=== PATIENT | female | born 1940 | race Caucasian/White ===

== ENCOUNTER 2024-11-18 13:14 | Emergency (ER) | payer OTHER, SELFPAY ==
[2024-11-18 13:23] VITALS: BP 183/96
[2024-11-18 13:51] LABS: Hematocrit 24.0 % (37.0-47.0); Hemoglobin 7.4 g/dL (12.0-16.0); Mean Corp Hgb Conc. 30.8 g/dL (33.0-37.0); Mean Corpuscular Volume 84.5 fL (81.0-99.0); Nucleated Red Blood Cells % 0 %; Platelet Count 268 10^3/uL (130-400); Red Cell Dist. Width 16.4 % (11.5-14.5)
[2024-11-18] MEDS: OMNIPAQUE 50 ML PO (14:06)
[2024-11-18 14:20] LABS: ALT (SGPT) 23 U/L (0-35); AST (SGOT) 34 U/L (14-36); Albumin 3.5 g/dl (3.5-5.0); Alkaline Phosphatase 63 U/L (38-126); Blood Urea Nitrogen 13 mg/dl (7-17); Calcium 8.9 mg/dl (8.4-10.2); Carbon Dioxide 28 mmol/L (22-30); Chloride 94 mmol/L (98-107); Glucose 99 mg/dl (70-99); Lipase 180 U/L (23-300); Magnesium 1.5 mg/dl (1.6-2.3); Potassium 3.4 mmol/L (3.5-5.1); Sodium 128 mmol/L (135-145); Total Protein 6.0 g/dl (6.3-8.2); eGFR > 60.00
--- NOTE | 2024-11-18 14:29 | ED.GENMED ---
History of Present Illness
<Adele Moreno PA-C - Last Filed: 11/18/24 18:36>
General
Chief Complaint: Abdominal Symptoms
Source: patient and ambulance crew
Time Seen by Provider: 11/18/24 13:32
History of Present Illness
History of Present Illness:
83yoF with a history of atrial fibrillation, hypertension, GERD presenting via EMS for evaluation of vomiting. Patient lives alone and had her initial home health appointment today. She was seen by a nurse practitioner and upon the BASKET FILLER's arrival,
the stove was noted to be on and the home smelled of smoke. Patient was also noted to be short of breath while walking up the stairs and her heart rate was irregular on assessment. There was also concern for dehydration because she was having
vomiting and diarrhea today. Patient reports having 2 episodes of vomiting today as well as 2 episodes of diarrhea. There was concern for cognitive decline so she was sent to the ED for evaluation.
Additional history obtained from Tatyana, patient's POA and friend. Tatyana reports that patient had a stroke about 3 to 4 months ago and her cognition has declined since then. Patient was complaining of diarrhea for the past few days and that her
stomach has not been feeling well. She has not been eating much. When asked if patient is safe at home, Tatyana states that that is 'questionable.'
After several attempts, patient's PCP office did call back to relay additional information. The nurse at her PCP office states that there is no documented history of atrial fibrillation. Her last blood work was done on 07/03/2024 and hemoglobin was
11.4 at that time and sodium was normal. Her problem list includes peripheral artery disease, COPD, hyperlipidemia, hypertension, carotid artery disease, iron deficiency anemia, and COPD.
Phy Exam
<Adele Moreno PA-C - Last Filed: 11/18/24 18:36>
General Physical Exam
General Presentation: no apparent distress
General Skin: warm and dry
General Habitus: elderly and frail
General Mental: alert
ENT Exam
ENT Exam: normocephalic
Cardiovascular Exam
Cardiovascular Exam: irregularly irregular and systolic murmur
Pulmonary Exam
Pulmonary Exam: no respiratory distress, no stridor, no wheezing and decreased breath sounds
Gastrointestinal Exam
Gastrointestinal Exam: non tender, soft, non distended and other
Neurological Exam
Neurological Exam: alert
Skin Exam
Skin Exam: normal color and warm/dry
Psychiatric Exam
Psychiatric Exam: agitated
Course
<Adele Moreno PA-C - Last Filed: 11/18/24 18:36>
Orders/Labs/Results
Orders:
Orders
11/18/24 13:31
Complete Blood Count/With Diff Urgent
Comprehensive Metabolic Panel Urgent
Lipase Urgent
Comment: ADD ON
Magnesium Urgent
Comment: ADD ON
NT-proBNP Urgent
Comment: ADD ON
11/18/24 13:44
Add On- LAB Urgent
Tests Added?: lipase, magnesium
11/18/24 13:45
Electrocardiogram (*1) Urgent
Reason for Study: Abdominal Pain
EKG- Treatment ONCE
11/18/24 13:46
Iohexol [Omnipaque] See Protocol PO NOW STA
11/18/24 13:50
Case Management Consult ONCE
Case Management Consult: Discharge Planning
CR Chest - 2 Views Urgent
Comment:
Reason For Exam: SOB
11/18/24 13:52
CT Head W/o Iv Contrast Urgent
Comment:
Reason For Exam: AMS
11/18/24 14:10
CT Abd/pel Without Iv Or Oral Urgent
Comment:
Reason For Exam: upper abd pain
11/18/24 14:23
Magnesium Sulfate 2 Gram/50 ml [Magnesium Sulfate] 2 gram in 50 ml IV NOW
Potassium Chloride [KCl] 20 meq PO NOW STA
11/18/24 14:27
0.9% Sodium Chloride 500 ml [Nss] 500 ml IV BOLUS
11/18/24 15:13
Troponin I Urgent
Urinalysis Reflex To Culture Urgent
Date Specimen was Collected: 11/18/24
Time Specimen was Collected: 15:12
11/18/24 16:11
Add On- LAB Urgent
Tests Added?: BNP
Abnormal Lab Results
11/18/24
13:31
RBC 2.84 L 10^6/uL
(4.20-5.40)
Hgb 7.4 L g/dL
(12.0-16.0)
Hct 24.0 L %
(37.0-47.0)
MCH 26.1 L pg
(27.0-31.0)
MCHC 30.8 L g/dL
(33.0-37.0)
RDW 16.4 H %
(11.5-14.5)
MPV 10.9 H fL
(7.4-10.4)
Absolute Neuts (auto) 7.7 H 10^3/uL
(1.4-6.5)
Absolute Monos (auto) 1.0 H 10^3/uL
(0.1-0.6)
Neutrophils % 75.4 H %
(42.2-75.2)
Lymphocytes % 12.5 L %
(20.5-51.1)
Monocytes % 10.1 H %
(1.7-9.3)
Sodium 128 L mmol/L
(135-145)
Potassium 3.4 L mmol/L
(3.5-5.1)
Chloride 94 L mmol/L
(98-107)
Magnesium 1.5 L mg/dl
(1.6-2.3)
Total Protein 6.0 L g/dl
(6.3-8.2)
11/18/24 13:31
11/18/24 13:31
Vital Signs
Initial and Last Documented VS:
Initial Vital Signs
Temp Pulse Resp BP Pulse Ox
98.3 F 74 18 183/96 96
11/18/24 13:23 11/18/24 13:23 11/18/24 13:23 11/18/24 13:23 11/18/24 13:23
Last Documented Vital Signs
Temp Pulse Resp BP Pulse Ox
98.3 F 74 18 157/71 96
11/18/24 13:23 11/18/24 13:23 11/18/24 13:23 11/18/24 17:05 11/18/24 16:28
<Ryan Starr, DO - Last Filed: 11/18/24 17:57>
Orders/Labs/Results
Orders:
Orders
11/18/24 13:31
Complete Blood Count/With Diff Urgent
Comprehensive Metabolic Panel Urgent
Lipase Urgent
Comment: ADD ON
Magnesium Urgent
Comment: ADD ON
NT-proBNP Urgent
Comment: ADD ON
11/18/24 13:44
Add On- LAB Urgent
Tests Added?: lipase, magnesium
11/18/24 13:45
Electrocardiogram (*1) Urgent
Reason for Study: Abdominal Pain
EKG- Treatment ONCE
11/18/24 13:46
Iohexol [Omnipaque] See Protocol PO NOW STA
11/18/24 13:50
Case Management Consult ONCE
Case Management Consult: Discharge Planning
CR Chest - 2 Views Urgent
Comment:
Reason For Exam: SOB
11/18/24 13:52
CT Head W/o Iv Contrast Urgent
Comment:
Reason For Exam: AMS
11/18/24 14:10
CT Abd/pel Without Iv Or Oral Urgent
Comment:
Reason For Exam: upper abd pain
11/18/24 14:23
Magnesium Sulfate 2 Gram/50 ml [Magnesium Sulfate] 2 gram in 50 ml IV NOW
Potassium Chloride [KCl] 20 meq PO NOW STA
11/18/24 14:27
0.9% Sodium Chloride 500 ml [Nss] 500 ml IV BOLUS
11/18/24 15:13
Troponin I Urgent
Urinalysis Reflex To Culture Urgent
Date Specimen was Collected: 11/18/24
Time Specimen was Collected: 15:12
11/18/24 16:11
Add On- LAB Urgent
Tests Added?: BNP
Abnormal Lab Results
11/18/24
13:31
RBC 2.84 L 10^6/uL
(4.20-5.40)
Hgb 7.4 L g/dL
(12.0-16.0)
Hct 24.0 L %
(37.0-47.0)
MCH 26.1 L pg
(27.0-31.0)
MCHC 30.8 L g/dL
(33.0-37.0)
RDW 16.4 H %
(11.5-14.5)
MPV 10.9 H fL
(7.4-10.4)
Absolute Neuts (auto) 7.7 H 10^3/uL
(1.4-6.5)
Absolute Monos (auto) 1.0 H 10^3/uL
(0.1-0.6)
Neutrophils % 75.4 H %
(42.2-75.2)
Lymphocytes % 12.5 L %
(20.5-51.1)
Monocytes % 10.1 H %
(1.7-9.3)
Sodium 128 L mmol/L
(135-145)
Potassium 3.4 L mmol/L
(3.5-5.1)
Chloride 94 L mmol/L
(98-107)
Magnesium 1.5 L mg/dl
(1.6-2.3)
Total Protein 6.0 L g/dl
(6.3-8.2)
11/18/24 13:31
11/18/24 13:31
Vital Signs
Initial and Last Documented VS:
Initial Vital Signs
Temp Pulse Resp BP Pulse Ox
98.3 F 74 18 183/96 96
11/18/24 13:23 11/18/24 13:23 11/18/24 13:23 11/18/24 13:23 11/18/24 13:23
Last Documented Vital Signs
Temp Pulse Resp BP Pulse Ox
98.3 F 74 18 157/71 96
11/18/24 13:23 11/18/24 13:23 11/18/24 13:23 11/18/24 17:05 11/18/24 16:28
<Adele Moreno PA-C - Last Filed: 11/18/24 18:36>
MDM/Problems Addressed
Differential Diagnosis Includes:
83yoF sent in by BASKET FILLER after an initial home visit. Concern for SOB as well as cognitive decline. Stove was on when BASKET FILLER arrived at the home today. Patient agitated and evasive with questioning. She is hypertensive with otherwise stable vitals. HR
irregularly iregular and systolic murmur noted. Differential diagnosis includes but is not limited to: arrhythmia, ACS, CHF, gastroenteritis, dehydration, failure to thrive
Initial ED plan: Check cardiac labs, UA, EKG, CXR, CT head, and CT abdomen. CT abdomen was initially ordered with PO contrast but patient is adamantly refusing this.
<Adele Moreno PA-C - Last Filed: 11/18/24 18:36>
*Pulse Oximetry
SaO2: 96
Oxygen Mode of Delivery: Room air
Patient hypoxic: no (96%)
*Critical Care Note
Total Time (30-74mins, 75-104mins- exclusive of procedures): Not Applicable
<Adele Moreno PA-C - Last Filed: 11/18/24 18:36>
Update Note
Update Note:
Lab work reveals severe anemia with a hemoglobin of 7.4. I was able to get in contact with patient's PCP and last hemoglobin was 11.4 in July of this year. Patient denies any melena or hematochezia. Patient is adamantly refusing rectal exam a this
time. Sodium also low at 129. Hypokalemia and hypomagnesemia noted which were both replaced. CXR shows mild pulmonary edema. CT abdomen shows air-fluid levels and normal caliber small bowel loops which may be related to ileus or enteritis as
well as anasarca. Case management consult obtained and patient is refusing placement at this time and outpatient resources provided. Patient has numerous reasons for hospitalization at this time including new severe anemia, new onset afib, and
suspected CHF. Patient is adamantly refusing hospitalization at this time. She is A&Ox3 and patient's POA, Tatyana, agrees to sign patient out AGAINST MEDICAL ADVICE.
ED Attending Note
<Adele Moreno PA-C - Last Filed: 11/18/24 18:36>
-
Portions of this chart may have been created with voice recognition software.� Occasional wrong word or��sound alike� substitutions may have occurred due to the inherent limitations of voice recognition software.
<Ryan Starr DO - Last Filed: 11/18/24 17:57>
ED Attending Note
Patient seen and examined by attending physician: Yes
ED Attending Note:
I have reviewed and agree with history and treatment plan by Adele Moreno PA-C. My exam revealed 83-year-old female alert and oriented to person place and season. Her power of disability attorney Tatyana Medrano is present. Patient is in no distress but
will not allow any further exam. She elects to leave AGAINST MEDICAL ADVICE which is consented by her power of disability attorney. Power of disability attorney and patient understand risks of this action.
Discharge Plan
Departure
Patient Disposition: Against Medical Advice
Date of Disposition: 11/18/24
Time of Disposition: 17:46
Patient with high blood pressure during this ER visit?: Yes
Condition: Fair
Discharge Problem:
Anemia, Hyponatremia, Atrial fibrillation
Instructions: Atrial fibrillation, Hyponatremia, Anemia in adults, possibly from low iron - ED (DC), BLOOD PRESSURE
Referrals:
ERICK WEBSTER MD [Family Provider, Internal Medicine] - Call in 1-3 days for appt
Corrina Barahona MD [Active, Cardiology] - Call in 1-3 days for appt
Interventions
Interventions:
*Risk Screen - Suicide Last Done: 11/18/24 13:25
*General Assessment Last Done: 11/18/24 16:02
*Neglect/Abuse Screening Last Done: 11/18/24 13:25
*ED- Fall Risk Assessment Last Done: 11/18/24 16:02
*Nursing Disposition Last Done: 11/18/24 18:05
KI-Odruaw-Lxmgyhoblx Assessment Last Done: 11/18/24 13:27
Discharge Date and Time
Discharge Date/Time: 11/18/24 18:05
Print Language: TAJIK
[2024-11-18] MEDS: NSS 500 IV (15:00)
[2024-11-18] MEDS: MAGNESIUM SULFATE 50 IV (15:01)
[2024-11-18 15:06] VITALS: BP 189/144
[2024-11-18] MEDS: KCL 20 MEQ PO (15:08)
[2024-11-18 15:39] LABS: Urine Character Clear (Clear)
[2024-11-18 15:57] LABS: Troponin I 0.028 ng/ml
[2024-11-18 16:01] VITALS: BMI 18.6
--- NOTE | 2024-11-18 16:35 | CM ---
Received CM consult, I met with pt and her friend Tatyana francy in ED. Pt lives alone, second floor condo, [address]
Tatyana assists pt with transport to appointments and food shopping. Pt states she is still driving.
Independent in ADLs, personal care and ambulation at baseline. Uses cane when outside the home. No recent falls. Pt confirms prescription coverage.
Pt had an initial visit from WILDLIFE SCIENCE PROFESSOR today who was concerned for pt safety, stove was on. Pt denies safety issues and is adamant that she wants to stay in her home. Discussed possibly hiring caregivers, she told me she doesn't like people coming in to
her home. List of women's studies professor/caregiver agencies given to pt.
Referral made to [facility].
PCP: Cristy Bailey
Pharmacy: [facility] Zackery Falcon
[2024-11-18 17:03] VITALS: BP 159/71
[2024-11-18 17:05] VITALS: BP 157/71
== END 2024-11-18 18:05 | disposition left against medical advice (07) ==
LOC: EMR 13:14
PROVIDERS: Physician Assistant; Student in an Organized Health Care Education/Training Program; EMERGENCY PHYSICIAN Emergency Medicine; FAMILY PHYSICIAN Student in an Organized Health Care Education/Training Program
DX: D50.9 Iron deficiency anemia, unspecified (principal); E87.1 Hypo-osmolality and hyponatremia; I48.91 Unspecified atrial fibrillation; E87.6 Hypokalemia; E83.42 Hypomagnesemia; I10 Essential (primary) hypertension; E78.5 Hyperlipidemia, unspecified; Z86.73 Personal history of transient ischemic attack (TIA), and cerebral infarction without residual deficits; J44.9 Chronic obstructive pulmonary disease, unspecified; I73.9 Peripheral vascular disease, unspecified; Z60.2 Problems related to living alone
CPT/HCPCS: 99285; 96365; 70450; 71046; 74176; 80053; 81003; 83690; 83735; 83880; 84484; 85025; 93005

== ENCOUNTER 2024-12-29 21:44 | Inpatient (IN) | payer OTHER, SELFPAY ==
[2024-12-29] VITALS (11 sets, daily range): BP systolic 145–196; BP diastolic 49–92
[2024-12-29 18:30] LABS: Hematocrit 29.8 % (37.0-47.0); Hemoglobin 9.1 g/dL (12.0-16.0); Mean Corp Hgb Conc. 30.5 g/dL (33.0-37.0); Mean Corpuscular Volume 79.0 fL (81.0-99.0); Nucleated Red Blood Cells % 0 %; Platelet Count 165 10^3/uL (130-400); Red Cell Dist. Width 17.4 % (11.5-14.5)
[2024-12-29 18:35] LABS: AST (SGOT) 57 U/L (14-36); Albumin 4.0 g/dl (3.5-5.0); Alkaline Phosphatase 156 U/L (38-126); Blood Urea Nitrogen 22 mg/dl (7-17); Calcium 9.0 mg/dl (8.4-10.2); Carbon Dioxide 16 mmol/L (22-30); Chloride 99 mmol/L (98-107); Glucose 206 mg/dl (70-99); Potassium 2.9 mmol/L (3.5-5.1); Sodium 134 mmol/L (135-145); Total Protein 6.9 g/dl (6.3-8.2); eGFR > 60.00
[2024-12-29 18:45] LABS: ALT (SGPT) 43 U/L (0-35)
--- NOTE | 2024-12-29 18:48 | ED.GENMED ---
Addendum entered and electronically signed by Angel Duarte MD 12/29/24 23:01:
Lactic acid was 14. Becoming more suspicious of ischemic bowel. Stool test positive. Ongoing nausea. Blood cultures ordered. Urine straight cath ordered. Patient has a dye allergy. Will prep with steroids and Benadryl. Discussed with
hospitalist.
Also discussed with patient's power of criminal attorney and friend. The patient does not want family called. Seriousness of patient's blossoming issues explained. CT scan pending. Patient has a DNR per her conversation with the hospitalist and per the
power of criminal attorney's conversation with me.
Original Note:
History of Present Illness
General
Chief Complaint: Weakness
Source: patient
Exam Limitations: none
Time Seen by Provider: 12/29/24 18:37
History of Present Illness
History of Present Illness:
Patient presents with shortness of breath. Started this morning. Generally weak. Lives alone. Denies chest pain syncope or other complaints.
Past History
Past History
ED Past Medical History: Arrthythmia, GERD and HTN
Review of Systems
Review of Systems
All Other Systems: Not applicable
Constitutional: Denies fever
Respiratory: Reports trouble breathing
Cardiac: Denies chest pain or syncope
Phy Exam
Physical Exam
Physical Exam:
GENERAL: Resting relatively comfortably. Sleeping but easily arousable. Elderly and frail.
EYE: Orbits normal.
NECK: Supple, no significant adenopathy.
ENT: Pharynx without erythema
CARDIAC: Irregular irregular. Tachycardic.
LUNGS: Mild hyperventilation. Decreased breath sounds diffusely. A few dry rales in the bases
ABDOMEN: Soft, without focal tenderness or distention
NEUROLOGICAL: Alert and oriented , grossly non-focal
SKIN: Warm and dry, no rash or lesion, no discoloration, skin intact.
MUSCULOSKELETAL: No edema,no deformity.Good color
PSYCH: Normal and appropriate interaction.
Sepsis
Sepsis Screening
Sepsis Assessment: Sepsis Ruled Out
Sepsis Screen
Sepsis Screen: Sepsis Ruled Out
Date: 12/29/24
Time: 21:57
Course
Orders/Labs/Results
Orders:
Orders
12/29/24 Breakfast
Regular
At Your Request: Limited, Range Ecologist Required
12/29/24 18:10
Electrocardiogram (*1) Urgent
Reason for Study: Shortness of Breath
EKG- Treatment ONCE
12/29/24 18:16
Complete Blood Count/With Diff Urgent
Comprehensive Metabolic Panel Urgent
Free T4 Urgent
TSH Reflex To Free T4 Urgent
Comment: ADD ON
Troponin I Urgent
12/29/24 18:43
CXR Port [CR Chest Portable - 1 View] Urgent
Comment:
Reason For Exam: sob
Reason Study Needs to be Portable: Patient Unstable
12/29/24 18:47
Diltiazem 125 mg/125 ml Nss [Cardizem] 125 mg in 125 ml IV NOW
Initial dose in mg/hr, then titrate:: 5
Titrate to keep:: Heart rate 80-100 bpm
Titrate by mg/hr:: 5 mg/hr
Frequency of titrations (minutes):: 15
Maximum dose in mg/hr:: 15
Diltiazem HCl [Cardizem] 5 mg IV NOW STA
12/29/24 19:13
COVID-19 Antigen Urgent
Source: Nasal Swab
12/29/24 19:24
Potassium Chloride 10% Elixir [KCl Elixir] 40 meq PO NOW STA
12/29/24 19:53
Add On- LAB Urgent
Tests Added?: tsh reflex t4
12/29/24 21:17
Admit/Transfer Patient As Directed
Co-Sign Provider:
Level of Care: Inpatient admission
Assign to:: IVU
Physician / Group: Marc
Diagnosis: A-Fib, Hypokalemia, Weakness
Reason for Hospitalization: A-Fib, Hypokalemia, Weakness
Expected length of stay greater than two midnights?: Yes
ELOS- Estimated Length of Stay in days: 3
I certify the patient meets the requirements for IP care: Yes
PRN Pain Medication Management As Directed
May give lesser potent ordered pain med per pt: Yes
preference::
Protocol:: Medication orders for pain may be administered in a
manner that supports deferring to patient preference
when the pt is:
- Requesting an ordered lesser potent pain medication.
Least to most potent pain medications are defined
as: acetaminophen < NSAID < tramadol < opioids
(morphine, oxycodone, hydromorphone).
- Requesting a lesser dose of the same medication IF
ORDERED.
- Requesting a less intrusive route of administration
if both routes are prescribed by the provider (PO <
IV).
12/29/24 21:18
Code Status As Directed
Resuscitation Status: Do not resuscitate
Reached after discussion with pt or family/Healthcare POA: Yes
12/29/24 21:19
DNR Bracelet Application ONCE
12/29/24 21:46
Lactic Acid Urgent
12/29/24 21:50
Troponin I Q6H
Acetaminophen [Tylenol] 650 mg PO Q4HPRN PRN
Dextrose 50%-Water [Dextrose 50% Syringe] 12.5 grams IV [id number] PRN
Diltiazem 125 mg/125 ml Nss [Cardizem] 125 mg in 125 ml IV PER PROTOCOL
Currently infusing. Continue current dose and titrate:: Yes
Titrate to keep:: Heart rate 80-100 bpm
Titrate by mg/hr:: 5 mg/hr
Frequency of titrations (minutes):: 15
Maximum dose in mg/hr:: 15
Glucagon [GlucaGen] 1 mg IM PRN PRN
Ipratropium/Albuterol Sulfate [Duoneb] 3 ml INH R Q4HPRN PRN
Ondansetron Injectable [Zofran] 4 mg IV Q6HPRN PRN
12/29/24 21:50
Echo 2D MMode Doppler [Echo 2D MMode Color/Doppler] Routine
Reason for Study: A-Fib, Weakness
Case Management Consult ONCE
Case Management Consult: Discharge Planning
Activity As Directed
Activity Level: Ambulate
With Assistance
Bedside Glucose Monitoring As Directed
Frequency: AC&HS
Additional Instructions:: Change to q6h if pt on TPN, tube feeding or not eating
Bladder Scan As Directed
Follow Bladder Retention/Intermittent Cath Algorithm?: Yes
PRN if no void in __ hours: 6
Frequency: Per Retention Algorithm
If Bladder Scan Result >: 400
then:: Straight cath
EKG with chest pain [ECG as needed] As Directed
ECG as needed for:: Chest Pain
I/O [Intake/ Output] As Directed
Frequency: Per unit guidelines
Straight Cath As Directed
Frequency: Per Retention Algorithm
Additional Instructions: straight cath as needed per acute urinary retention algorithm for 24 hrs
Additional Instructions: for bladder scan greater than 400 mL
Vital Signs As Directed
Frequency: Per unit guidelines
Weight As Directed
Frequency: Daily
Oxygen Therapy [O2 Therapy] [RESP] Routine
Titrate/Wean O2 to maintain O2 sat greater than (%): 94
Ot Eval And Treat Routine
PT Consult [Pt Eval And Treat] Routine
Activity Level: Ambulate
With Assistance
DX Deep Vein Thrombosis Video Routine
12/29/24 22:00
Lactated Ringers [Lr] 1,000 ml IV 100 mls/hr
Metoprolol Xl [Toprol Xl] 25 mg PO BID
12/30/24 03:50
Troponin I Q6H
12/30/24 06:00
EKG [Electrocardiogram (*1)] IN AM
Reason for Study: Chest Pain
Basic Metabolic Panel IN AM
Cardiovascular Evaluation IN AM
Complete Blood Count/No Diff IN AM
Glycohemoglobin (HgbA1c) IN AM
Magnesium IN AM
12/30/24 07:30
Insulin Aspart Corrective Low [Novolog Flexpen-Low Resistance] See Protocol SC AC
12/30/24 08:00
Aspirin Chewable [Low Strength Aspirin] 81 mg PO BID
Heparin 5,000 units SC Q12
12/30/24 09:50
Troponin I Q6H
Abnormal Lab Results
12/29/24
18:16
RBC 3.77 L 10^6/uL
(4.20-5.40)
Hgb 9.1 L g/dL
(12.0-16.0)
Hct 29.8 L %
(37.0-47.0)
MCV 79.0 L fL
(81.0-99.0)
MCH 24.1 L pg
(27.0-31.0)
MCHC 30.5 L g/dL
(33.0-37.0)
RDW 17.4 H %
(11.5-14.5)
MPV 11.3 H fL
(7.4-10.4)
Abs Immat Gran (auto) 0.1 H 10^3/uL
(0-0.05)
Absolute Neuts (auto) 6.8 H 10^3/uL
(1.4-6.5)
Absolute Lymphs (auto) 0.8 L 10^3/uL
(1.2-3.4)
Absolute Monos (auto) 0.7 H 10^3/uL
(0.1-0.6)
Immature Gran % 0.7 H %
(0-0.5)
Neutrophils % 81.2 H %
(42.2-75.2)
Lymphocytes % 9.9 L %
(20.5-51.1)
Sodium 134 L mmol/L
(135-145)
Potassium 2.9 L mmol/L
(3.5-5.1)
Carbon Dioxide 16 L mmol/L
(22-30)
BUN 22 H mg/dl
(7-17)
Glucose 206 H mg/dl
(70-99)
AST 57 H U/L
(14-36)
ALT 43 H U/L
(0-35)
Alkaline Phosphatase 156 H U/L
(38-126)
Troponin I 0.046 H* ng/ml
TSH (Reflex) 7.18 H uIU/ml
(0.47-4.68)
12/29/24 18:16
12/29/24 18:16
Vital Signs
Initial and Last Documented VS:
Initial Vital Signs
Pulse Resp Pulse Ox
126 22 100
12/29/24 18:08 12/29/24 18:08 12/29/24 18:08
Last Documented Vital Signs
Pulse Resp BP Pulse Ox
69 35 187/58 99
12/29/24 21:45 12/29/24 21:45 12/29/24 21:30 12/29/24 21:45
MDM/Problems Addressed
Differential Diagnosis Includes:
Patient generally weak. Short of breath. Oxygenating however. A-fib RVR. Will rate control workup in progress. Check chest x-ray COVID flu. Clinically not in heart failure. Will require admission
*Pulse Oximetry
SaO2: 99
Oxygen Mode of Delivery: Room air
Patient hypoxic: no
*EKG
Interpreted by ED Provider?: Yes
Interpretation: abnormal
Comparison EKG: changes noted
Heart Rate: 114
Rate: tachycardiac
Rhythm: a-fib
QRS Pattern: normal QRS
Ischemia: ST depression
*Time Signal Wirer Interpretation
Rate: tachycardiac
Interpretation: abnormal
Heart Rate: 124
*Critical Care Note
Total Time (30-74mins, 75-104mins- exclusive of procedures): Not Applicable
Data Reviewed
Review of Other/Old Records Reveals: Labs and Testing
Update Note
Update Note:
A-fib RVR. She also likely has underlying COPD. Her problem list from her primary included PAD COPD hypercholesterolemia hypertension CAD iron deficiency anemia.
ED Attending Note
-
Portions of this chart may have been created with voice recognition software.� Occasional wrong word or��sound alike� substitutions may have occurred due to the inherent limitations of voice recognition software.
Discharge Plan
Departure
Patient Disposition: Admit
Date of Disposition: 12/29/24
Time of Disposition: 19:54
Presentation/result/management discussed w/ accepting MD/DO: Hospitalist
Discharge Problem:
A-fib/RVR, Dyspnea/COPD, Hypokalemia, Chronic anemia
Interventions
Interventions:
*Risk Screen - Suicide Last Done: 12/29/24 18:11
*General Assessment Last Done: 12/29/24 18:11
*Neglect/Abuse Screening Last Done: 12/29/24 18:11
*ED COVID-19 Vaccine History Last Done: 12/29/24 18:11
*ED Influenza Vaccine History Last Done: 12/29/24 18:11
ED- Cardiac Assessment Last Done: 12/29/24 18:15
ED- Neurological Assessment Last Done: 12/29/24 18:15
ED- Pulmonary Assessment Last Done: 12/29/24 18:15
[2024-12-29 18:49] LABS: Troponin I 0.046 ng/ml
[2024-12-29] MEDS: CARDIZEM 5 MG IV (19:10)
[2024-12-29] MEDS: CARDIZEM 125 IV (19:11)
[2024-12-29] MEDS: KCL ELIXIR 40 MEQ PO (19:34)
[2024-12-29 19:35] LABS: COVID-19 Antigen Negative (Negative)
--- NOTE | 2024-12-29 21:23 | HPS.HSE ---
Addendum entered and electronically signed by Tyrone Tran DO 12/30/24 08:09:
Update:
Patient seen and examined throughout the night.
Lactate added to ED labs for evaluation of anion gap acidosis was markedly elevated at 14.
Patient complained of abdominal pain and had episode of bloody, gelatinous stool in the ED.
Sent for CTA given concern for ischemic bowel. Required prep prior to IV contrast administration.
CTA showed: likely subsegmental RUL pulmonary embolism, marked and diffuse atherosclerotic disease throughout the abdomen - specifically the celiac, SMA, CHRIS and L renal arteries.
BP normal / elevated.
Case reviewed with IR and Vascular Surgery. No clear target for intervention given extensive / diffuse disease.
No evidence on CT of bowel wall necrosis, free air, etc.
Will administer IVFs and follow exam / serial lactate for now.
Vascular Surgery to evaluate in the AM.
IV heparin with no bolus for now given extensive ASCVD and RUL PE. Monitor for significant rectal bleeding and discontinue if necessary.
Prognosis is poor given extensive disease, advanced age, etc.
Attempted to update friend / POA following CT report. No answer at listed number.
Original Note:
Family Physician
-
Family Physician: ERICK WEBSTER MD
Chief Complaint
-
Fatigue
History of Present Illness
Patient is an 84y F with PMH significant for extensive ASCVD, hypertension and COPD who presents to ED complaining of weakness / fatigue. History obtained from patient and friend at the bedside. Friend states that patient has been weak and
fatigued with very poor appetite / PO intake for the past several weeks. She reportedly stopped taking all of her medications many months ago.
Patient denies any chest pain. She denies any fevers / chills. Patient reports nausea since this AM and she had an episode of bilious emesis during my exam.
Medical History
Past Medical History
Past Medical History: Reports Other
Additional Past Medical History:
Marked ASCVD
Prior CVAs
Hypertension
Paroxysmal A-Fib
COPD
Past Surgical History: Reports Other
Additional Past Surgical History:
PTCA with Multiple Stents (Coronary, Carotid, Peripheral)
Cataracts
Social History
Tobacco: Smoker (Current every day smoker. > 50 pack years total use.)
Alcohol: None
Drug: None
Family History
Family History: Not pertinent
Allergies / Home Medications
Allergies reflects when Allergies were last updated in [facility].
Home Medications with original date entered in [facility]
Allergy/Medication List:
Patient has taken no medications x several months.
If medication reconciliation has not been performed, why?: Medication List N/A
Review of Systems
-
History Source: Patient
A 12 point ROS was completed and negative except as noted: Yes
Constitutional: Reports Fatigue; Denies Fever or Chills
EENT: Denies Sore Throat
Respiratory: Reports Trouble Breathing; Denies Cough
Cardiac: Denies Chest Pain, Diaphoresis or Palpitations
Abdomen/GI: Reports Nausea, Vomiting and Anorexia; Denies Abdominal Pain or Diarrhea
: Denies Dysuria, Frequency or Flank Pain
Musculoskeletal: Denies Joint Pain or Edema
Neurological: Reports Weakness; Denies Dizzy or Headache
Psych: Reports Depression; Denies Anxiety
Physical Exam
Vital Signs
Vital Signs
Pulse Resp BP Pulse Ox
104 26 155/77 98
12/29/24 21:00 12/29/24 21:00 12/29/24 20:30 12/29/24 21:00
Physical Exam
General: Other (Frail, elderly 84y F in mild distres due to nausea.)
HEENT: Other (Dry MM. Neck supple.)
Respiratory: Other (Decreased BS bilaterally. Otherwise clear.)
Cardiac: S1/S2, Irregular Rhythm and Murmur (III/ RUSSELL)
GI: Soft, Non Tender, Non Distended and Normal Bowel Sounds
Musculoskeletal: No Clubbing, No Cyanosis and No Edema
Neuro: AO x 3 and Nonfocal/grossly intact
Laboratory Results
-
12/29/24 18:16
12/29/24 18:16
Laboratory Results
Total Bilirubin 1.0 mg/dl (0.2-1.3) 12/29/24 18:16
AST 57 U/L (14-36) H 12/29/24 18:16
ALT 43 U/L (0-35) H 12/29/24 18:16
Alkaline Phosphatase 156 U/L (38-126) H 12/29/24 18:16
Troponin I 0.046 ng/ml H* 12/29/24 18:16
Impression/Plan
-
A/P: Patient is an 84y F with PMH significant for marked ASCVD, hypertension and COPD who presents to ED for evaluation of generalized weakness and fatigue.
Weakness / Fatigue
- Admit for further evaluation and treatment.
- Likely multifactorial and related to being off of medications x months, A-Fib, hypokalemia, etc.
- Address individual issues as noted below.
- PT / OT evaluations.
- Follow for clinical improvement.
Paroxysmal Atrial Fibrillation
- Presented with rates in the 130s.
- Continue Cardizem infusion for now.
- Begin Toprol and taper off of Cardizem as able.
- Resume ASA 81mg BID (patient was not previously on OAC).
- Check Echo.
Hypokalemia
- Unclear etiology. ? hyperaldo given significant hypertension as well?
- Family states that patient was previously on potassium supplementation.
- KCl replacement. Check Mg.
- Follow for improvement.
ASCVD
Abnormal Troponin - Unknown Type
- No chest pain. No evident ischemia on EKG.
- ASA as noted above.
- Follow serial troponin.
- Follow for any new / worsening symptoms.
Anion Gap Metabolic Acidosis
- Anion gap = 19 on initial labs. Unclear etiology.
- Check lactate now. Mild glucose elevation - but DKA unlikely.
- IVFs overnight. Follow labs / lytes for improvement.
COPD
- Stable. No wheezing at present.
- Continues to smoke. Not on any inhalers at present.
- Follow for changes.
- DuoNebs PRN.
Microcytic Anemia
- Unknown etiology / chronicity / etc.
- Check iron studies.
DVT Prophylaxis: Subcut Heparin
Code Status: DNR
[2024-12-29] MEDS: TOPROL XL 25 MG PO (22:20)
[2024-12-29] MEDS: LR 1000 IV (22:22)
--- NOTE | 2024-12-29 22:43 | ED.GENMED ---
History of Present Illness
General
Chief Complaint: Weakness
Time Seen by Provider: 12/29/24 18:37
Past History
Past History
ED Past Medical History: Arrthythmia, GERD and HTN
Course
Orders/Labs/Results
Orders:
Orders
12/29/24 Breakfast
Regular
At Your Request: Limited, Shuttler Car Required
12/29/24 18:10
Electrocardiogram (*1) Urgent
Reason for Study: Shortness of Breath
EKG- Treatment ONCE
12/29/24 18:16
Complete Blood Count/With Diff Urgent
Comprehensive Metabolic Panel Urgent
Free T4 Urgent
TSH Reflex To Free T4 Urgent
Comment: ADD ON
Troponin I Urgent
12/29/24 18:43
CXR Port [CR Chest Portable - 1 View] Urgent
Comment:
Reason For Exam: sob
Reason Study Needs to be Portable: Patient Unstable
12/29/24 18:47
Diltiazem 125 mg/125 ml Nss [Cardizem] 125 mg in 125 ml IV NOW
Initial dose in mg/hr, then titrate:: 5
Titrate to keep:: Heart rate 80-100 bpm
Titrate by mg/hr:: 5 mg/hr
Frequency of titrations (minutes):: 15
Maximum dose in mg/hr:: 15
Diltiazem HCl [Cardizem] 5 mg IV NOW STA
12/29/24 19:13
COVID-19 Antigen Urgent
Source: Nasal Swab
12/29/24 19:24
Potassium Chloride 10% Elixir [KCl Elixir] 40 meq PO NOW STA
12/29/24 19:53
Add On- LAB Urgent
Tests Added?: tsh reflex t4
12/29/24 21:17
Admit/Transfer Patient As Directed
Co-Sign Provider:
Level of Care: Inpatient admission
Assign to:: IVU
Physician / Group: Marc
Diagnosis: A-Fib, Hypokalemia, Weakness
Reason for Hospitalization: A-Fib, Hypokalemia, Weakness
Expected length of stay greater than two midnights?: Yes
ELOS- Estimated Length of Stay in days: 3
I certify the patient meets the requirements for IP care: Yes
PRN Pain Medication Management As Directed
May give lesser potent ordered pain med per pt: Yes
preference::
Protocol:: Medication orders for pain may be administered in a
manner that supports deferring to patient preference
when the pt is:
- Requesting an ordered lesser potent pain medication.
Least to most potent pain medications are defined
as: acetaminophen < NSAID < tramadol < opioids
(morphine, oxycodone, hydromorphone).
- Requesting a lesser dose of the same medication IF
ORDERED.
- Requesting a less intrusive route of administration
if both routes are prescribed by the provider (PO <
IV).
12/29/24 21:18
Code Status As Directed
Resuscitation Status: Do not resuscitate
Reached after discussion with pt or family/Healthcare POA: Yes
12/29/24 21:19
DNR Bracelet Application ONCE
12/29/24 21:46
Lactic Acid Urgent
12/29/24 21:50
Acetaminophen [Tylenol] 650 mg PO Q4HPRN PRN
Dextrose 50%-Water [Dextrose 50% Syringe] 12.5 grams IV [id number] PRN
Diltiazem 125 mg/125 ml Nss [Cardizem] 125 mg in 125 ml IV PER PROTOCOL
Currently infusing. Continue current dose and titrate:: Yes
Titrate to keep:: Heart rate 80-100 bpm
Titrate by mg/hr:: 5 mg/hr
Frequency of titrations (minutes):: 15
Maximum dose in mg/hr:: 15
Glucagon [GlucaGen] 1 mg IM PRN PRN
Ipratropium/Albuterol Sulfate [Duoneb] 3 ml INH R Q4HPRN PRN
Ondansetron Injectable [Zofran] 4 mg IV Q6HPRN PRN
12/29/24 21:50
Echo 2D MMode Doppler [Echo 2D MMode Color/Doppler] Routine
Reason for Study: A-Fib, Weakness
Case Management Consult ONCE
Case Management Consult: Discharge Planning
Activity As Directed
Activity Level: Ambulate
With Assistance
Bedside Glucose Monitoring As Directed
Frequency: AC&HS
Additional Instructions:: Change to q6h if pt on TPN, tube feeding or not eating
Bladder Scan As Directed
Follow Bladder Retention/Intermittent Cath Algorithm?: Yes
PRN if no void in __ hours: 6
Frequency: Per Retention Algorithm
If Bladder Scan Result >: 400
then:: Straight cath
EKG with chest pain [ECG as needed] As Directed
ECG as needed for:: Chest Pain
I/O [Intake/ Output] As Directed
Frequency: Per unit guidelines
Straight Cath As Directed
Frequency: Per Retention Algorithm
Additional Instructions: straight cath as needed per acute urinary retention algorithm for 24 hrs
Additional Instructions: for bladder scan greater than 400 mL
Vital Signs As Directed
Frequency: Per unit guidelines
Weight As Directed
Frequency: Daily
Oxygen Therapy [O2 Therapy] [RESP] Routine
Titrate/Wean O2 to maintain O2 sat greater than (%): 94
Ot Eval And Treat Routine
PT Consult [Pt Eval And Treat] Routine
Activity Level: Ambulate
With Assistance
DX Deep Vein Thrombosis Video Routine
12/29/24 22:00
Lactated Ringers [Lr] 1,000 ml IV 100 mls/hr
Metoprolol Xl [Toprol Xl] 25 mg PO BID
12/29/24 22:42
Troponin I Q6H
12/30/24 03:50
Troponin I Q6H
12/30/24 06:00
EKG [Electrocardiogram (*1)] IN AM
Reason for Study: Chest Pain
Basic Metabolic Panel IN AM
Cardiovascular Evaluation IN AM
Complete Blood Count/No Diff IN AM
Glycohemoglobin (HgbA1c) IN AM
Magnesium IN AM
12/30/24 07:30
Insulin Aspart Corrective Low [Novolog Flexpen-Low Resistance] See Protocol SC AC
12/30/24 08:00
Aspirin Chewable [Low Strength Aspirin] 81 mg PO BID
Heparin 5,000 units SC Q12
12/30/24 09:50
Troponin I Q6H
Abnormal Lab Results
12/29/24
18:16
RBC 3.77 L 10^6/uL
(4.20-5.40)
Hgb 9.1 L g/dL
(12.0-16.0)
Hct 29.8 L %
(37.0-47.0)
MCV 79.0 L fL
(81.0-99.0)
MCH 24.1 L pg
(27.0-31.0)
MCHC 30.5 L g/dL
(33.0-37.0)
RDW 17.4 H %
(11.5-14.5)
MPV 11.3 H fL
(7.4-10.4)
Abs Immat Gran (auto) 0.1 H 10^3/uL
(0-0.05)
Absolute Neuts (auto) 6.8 H 10^3/uL
(1.4-6.5)
Absolute Lymphs (auto) 0.8 L 10^3/uL
(1.2-3.4)
Absolute Monos (auto) 0.7 H 10^3/uL
(0.1-0.6)
Immature Gran % 0.7 H %
(0-0.5)
Neutrophils % 81.2 H %
(42.2-75.2)
Lymphocytes % 9.9 L %
(20.5-51.1)
Sodium 134 L mmol/L
(135-145)
Potassium 2.9 L mmol/L
(3.5-5.1)
Carbon Dioxide 16 L mmol/L
(22-30)
BUN 22 H mg/dl
(7-17)
Glucose 206 H mg/dl
(70-99)
AST 57 H U/L
(14-36)
ALT 43 H U/L
(0-35)
Alkaline Phosphatase 156 H U/L
(38-126)
Troponin I 0.046 H* ng/ml
TSH (Reflex) 7.18 H uIU/ml
(0.47-4.68)
12/29/24 18:16
12/29/24 18:16
Vital Signs
Initial and Last Documented VS:
Initial Vital Signs
Pulse Resp Pulse Ox
126 22 100
12/29/24 18:08 12/29/24 18:08 12/29/24 18:08
Last Documented Vital Signs
Pulse Resp BP Pulse Ox
72 35 151/49 99
12/29/24 22:20 12/29/24 21:45 12/29/24 22:20 12/29/24 22:44
*Pulse Oximetry
SaO2: 99
Oxygen Mode of Delivery: Room air
Update Note
Update Note:
Lactic acid was 14. Becoming more suspicious of ischemic bowel. Stool test positive. Ongoing nausea. Blood cultures ordered. Urine straight cath ordered. Patient has a dye allergy. Will prep with steroids and Benadryl. Discussed with
hospitalist.
Discussed with patient's power of ssrs report developer and friend. The patient does not want family called. Seriousness of patient's blossoming issues explained. CT scan pending. Patient is a DNR per her conversation with the hospitalist and per the power
of ssrs report developer's conversation with me.
ED Attending Note
-
Portions of this chart may have been created with voice recognition software.� Occasional wrong word or��sound alike� substitutions may have occurred due to the inherent limitations of voice recognition software.
Discharge Plan
Departure
Patient Disposition: Admit
Date of Disposition: 12/29/24
Time of Disposition: 19:54
Presentation/result/management discussed w/ accepting MD/DO: Hospitalist
Discharge Problem:
A-fib/RVR, Dyspnea/COPD, Hypokalemia, Chronic anemia
Interventions
Interventions:
*Risk Screen - Suicide Last Done: 12/29/24 18:11
*General Assessment Last Done: 12/29/24 18:11
*Neglect/Abuse Screening Last Done: 12/29/24 18:11
*ED COVID-19 Vaccine History Last Done: 12/29/24 18:11
*ED Influenza Vaccine History Last Done: 12/29/24 18:11
ED- Cardiac Assessment Last Done: 12/29/24 18:15
ED- Neurological Assessment Last Done: 12/29/24 18:15
ED- Pulmonary Assessment Last Done: 12/29/24 18:15
[2024-12-29] MEDS: NSS 1000 IV (22:50)
[2024-12-29] MEDS: BENADRYL 25 MG IV (22:52)
[2024-12-29] MEDS: SOLU-CORTEF 200 MG IV (22:53)
[2024-12-29 23:14] LABS: Iron < 20 ug/dl (37-170)
[2024-12-29 23:17] LABS: Troponin I 0.098 ng/ml
[2024-12-29 23:19] LABS: Total Iron Binding Capacity 394 ug/dl (265-497)
[2024-12-29 23:46] LABS: Ferritin 53.6 ng/ml (11.1-264.0)
[2024-12-30] VITALS (22 sets, daily range): BP systolic 74–186; BP diastolic 34–82; BMI 16.8
[2024-12-30 00:01] LABS: Urine Character Clear (Clear)
[2024-12-30 00:08] LABS: Urine Red Blood Cell 0-2 /HPF (0-2); Urine Squamous Cell 0-2 /LPF (Few); Urine White Cell 0-2 /HPF (0-5)
[2024-12-30] MEDS: MORPHINE SULFATE 2 MG IV ×2 (00:38→14:07)
[2024-12-30] MEDS: HEPARIN 25000 UNITS/250 ML IV (01:22)
[2024-12-30 01:37] LABS: APTT 33.2 Sec (23.4-35.0); Hematocrit 29.1 % (37.0-47.0); Hemoglobin 8.5 g/dL (12.0-16.0); Mean Corp Hgb Conc. 29.2 g/dL (33.0-37.0); Mean Corpuscular Volume 79.7 fL (81.0-99.0); Platelet Count 122 10^3/uL (130-400); Red Cell Dist. Width 17.6 % (11.5-14.5)
--- NOTE | 2024-12-30 02:00 | PTCARENOTE ---
pt admit to ICU from ER. aaox3, lethargic. afebrile. SB-SR HR 50s-60s. B/L IV WNL- arrived on LR @ 100 cc/hr & heparin gtt at 700 u/hr. Sat 100% on 2L NC. inc lg amt urine. sukhdev care/purewick applied. CHG cloths. care ongoing.
[2024-12-30 02:13] LABS: Glucose - Point of Care 71 mg/dl (70-99)
[2024-12-30] MEDS: ZOFRAN 4 MG IV (02:13)
[2024-12-30 02:14] LABS: Venous Blood Gas B.E. -17.4 mmol/L (-4 to +4); Venous Blood Gas O2 Sat % 99.4 %
[2024-12-30 02:24] LABS: INR 1.86; PT 22.0 Sec (11.4-14.6)
[2024-12-30 02:33] LABS: Hematocrit 29.5 % (37.0-47.0); Hemoglobin 8.6 g/dL (12.0-16.0); Mean Corp Hgb Conc. 29.2 g/dL (33.0-37.0); Mean Corpuscular Volume 80.8 fL (81.0-99.0); Platelet Count 138 10^3/uL (130-400); Red Cell Dist. Width 17.6 % (11.5-14.5)
[2024-12-30 02:51] LABS: Troponin I 0.176 ng/ml
[2024-12-30] MEDS: KCL 270 MEQ IV (02:56)
[2024-12-30] MEDS: SODIUM BICARBONATE 1150 MEQ IV (02:56)
[2024-12-30 03:05] LABS: Blood Urea Nitrogen 19 mg/dl (7-17); Calcium 8.9 mg/dl (8.4-10.2); Carbon Dioxide 6 mmol/L (22-30); Chloride 105 mmol/L (98-107); Estimated Creatinine Clearance 29 ml/min; Glucose 62 mg/dl (70-99); HDL Cholesterol 47 mg/dl; LDL Cholesterol, Calculated 92 mg/dl; Magnesium 2.0 mg/dl (1.6-2.3); Potassium 3.8 mmol/L (3.5-5.1); Sodium 138 mmol/L (135-145); Very Low Density Lipoprotein 32 mg/dl (0-30); eGFR > 60.00
[2024-12-30] MEDS: SODIUM BICARBONATE 50 MEQ IV (03:17)
[2024-12-30] MEDS: DEXTROSE 50% SYRINGE 12.5 GRAMS IV (03:17)
[2024-12-30 05:48] LABS: Glucose - Point of Care 109 mg/dl (70-99)
[2024-12-30 08:35] LABS: Hematocrit 28.3 % (37.0-47.0); Hemoglobin 8.2 g/dL (12.0-16.0)
[2024-12-30 08:42] LABS: APTT 41.7 Sec (23.4-35.0)
--- NOTE | 2024-12-30 08:55 | W.PN.UPDATE ---
Update Note
Progress Note Update
Patient seen and examined
History reviewed in the chart
Pt currently complaining of abd pain
CTA personally reviewed. She has diffuse and severe calcified atherosclerotic disease throughout her thoracic and abdominal aorta. Mesenteric vessels heavily calcified with occlusive disease involving the celiac and SMA. Severe bilateral renal
artery calcified plaque. Abdominal aortic aneurysm present with mural thrombus.
On exam she is frail and cachectic
Chronically ill appearing
Temporal wasting
Abd tender diffusely
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 I do not believe there is an endovascular or open revascularization option for her. I explained this to Sherri and recommend comfort
care/hospice. Attempted to reach her friend Tatyana at the number in the chart but there was no answer. Left VM.
Please contact me with questions/concerns
[id number]
[facility] Vascular Surgery
--- NOTE | 2024-12-30 08:55 | W.PN.HOSP.TC ---
Today's Communication/Plan
-
see outlined plan below
Assessment / Plan
Assessment / Plan
CTA:
1. 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 Inferior mesenteric artery is not opacified.
2. Mild diffuse wall thickening involving the colon, suggestive of colitis. Given severe mesenteric vascular disease, ischemic colitis should be considered.
3. 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
4. Bilateral iliac stents are patent. Occlusion of the left common femoral artery and proximal SFA.
5. Filling defect within a subsegmental right upper lobe pulmonary artery, suggestive of small subsegmental pulmonary embolism. No evidence of right heart strain.
6. Hypoenhancement of the left kidney relative to the right. Nonenhancement of the left renal artery.
7. Moderate centrilobular emphysema. Patient should be assessed for an annual low-dose lung cancer CT program, as pulmonary emphysema is an independent risk factor for lung cancer.
Assessment:
Acute ischemic bowel with ischemic colitis
- abd pain, heme + gelatinous/bloody stools
- acute metabolic acidosis, gapped with lactic acidosis now up to 22
- CT: summarized above
- d/w Vascular and IR; no target for intervention. Disease is too advanced
- continue IV heparin drip protocol
- continue IVF (bicarbonate) and pain control
- continue PPI daily
- continue empiric Zosyn; cultures pending
- GOC discussion with POA/Friend; Vascular will alert us after call
Acute PE
Acute hypoxic respiratory insufficiency
- subsegmental right upper lobe pulmonary artery, suggestive of small subsegmental pulmonary embolism
- continue IV heparin drip protocol
Nonischemic myocardial injury in setting of ischemic bowel, PE
Hx of likely CAD
- trop .176 present, next check pending this hour
Paroxysmal Atrial Fibrillation
- with RVR, presented with HRs 130s
- s/p Cardizem infusion
- Toprol XL BID
- hold ASA BID
- Echo ordered
Hypoglycemia
- IVF with Dextrose
Hypokalemia in setting of colitis
- repleted; monitor labs. Mag was normal
COPD
- Stable. No wheezing at present.
- Continues to smoke. Not on any inhalers at present.
- Follow for changes.
- DuoNebs PRN.
Microcytic Anemia
- Unknown etiology / chronicity / etc.
- await iron studies.
DVT Prophylaxis: SC heparin
Code: DNR/DNI
Prognosis: poor. ongoing GOC discussion
Total Critical Care Time 41 minutes. I was immediately available to the patient and staff. I personally examined, reviewed labs, diagnostic images/reports, interpretations, treatment plans, discussed patient care with other providers and family
or caregivers (if patient is unable to make decisions), entered orders as appropriate and documented the medical record.
Anticipated Discharge: > 48 hours
Subjective/Interval History
-
Date of Service: December 30, 2024
reports some abdominal pain
appears somewhat labored in breathing, denies chest pain
Acidosis/lactic acidosis worsening
Objective Data
-
Labs:
Laboratory Results
12/30/24 12/30/24 12/30/24
01:19 02:03 02:04
WBC 21.1 H 22.7 H
Hgb 8.5 L 8.6 L
Hct 29.1 L 29.5 L
Plt Count 122 L D 138
PT 22.0 H
INR 1.86
APTT 33.2
Sodium 138
Potassium 3.8 D
Chloride 105
Carbon Dioxide 6 L*
BUN 19 H
Creatinine 0.9
Glucose 62 L
Calcium 8.9
12/30/24 12/30/24 12/30/24
02:13 08:11 13:15
WBC
Hgb 8.2 L Pending
Hct 28.3 L Pending
Plt Count
PT Cancelled
INR Cancelled
APTT Cancelled 41.7 H
Sodium
Potassium
Chloride
Carbon Dioxide
BUN
Creatinine
Glucose
Calcium
12/30/24
19:15
WBC
Hgb Pending
Hct Pending
Plt Count
PT
INR
APTT
Sodium
Potassium
Chloride
Carbon Dioxide
BUN
Creatinine
Glucose
Calcium
Vital Signs:
Vital Signs
Temp Pulse Resp BP Pulse Ox
96.7 F L 75 34 150/53 100
12/30/24 08:03 12/30/24 07:45 12/30/24 07:45 12/30/24 07:00 12/30/24 08:23
I&O
12/29/24 12/30/24 12/31/24
06:59 06:59 06:59
Intake Total 685 / 685 82 / 82
Output Total 500 / 500
Balance 185 / 185 82 / 82
Physical Exam
-
General: Respiratory Distress, Appears in Distress and Pain
HEENT: Normocephalic and Atraumatic
Respiratory: Clear to Auscultation; Negative Wheezes
Cardiac: Regular Rhythm and S1/S2
GI: Tender
Genito-urinary: No Costovertebral Tender
Neuro: AO x 3
Psych: Calm
Data Reviewed
-
Critical Care Time (in minutes): 41
Labs: Labs Reviewed by me
[2024-12-30 09:09] LABS: Glycohemoglobin (HgbA1c) 6.0 % (4.0-5.6)
[2024-12-30] MEDS: ZOSYN 50 IV (09:13)
--- NOTE | 2024-12-30 09:19 | CON.VAS ---
Consultation
Consultation Request
Date/Time Consultation Performed: 12/30/2024 730 AM
Performing Provider: Shira
Reason for Consultation: Abdominal pain/bowel ischemia
Medical History
-
Chief Complaint: Abdominal pain
History of Present Illness:
84-year-old female with past medical history significant for extensive ASCVD, hypertension, COPD, A-fib, CVA, [place] presented to the emergency room last night for weakness/fatigue. Per patient's friend who arrived with her in the ER the patient has
been weak and fatigued with poor appetite for several weeks. Patient has not taken any medications for months.
CTA suggests:
1. 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 Inferior mesenteric artery is not opacified.
2. Mild diffuse wall thickening involving the colon, suggestive of colitis. Given severe mesenteric vascular disease, ischemic colitis should be considered.
3. 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
4. Bilateral iliac stents are patent. Occlusion of the left common femoral artery and proximal SFA.
5. Filling defect within a subsegmental right upper lobe pulmonary artery, suggestive of small subsegmental pulmonary embolism. No evidence of right heart strain.
6. Hypoenhancement of the left kidney relative to the right. Nonenhancement of the left renal artery.
7. Moderate centrilobular emphysema. Patient should be assessed for an annual low-dose lung cancer CT program, as pulmonary emphysema is an independent risk factor for lung cancer.
Vascular consult for high-grade stenosis at the SMA. Patient seen at bedside this a.m. with Dr. Silva. Patient complains of abdominal discomfort.
Past Medical History
Past Medical History: Other (See above)
Past Surgical History: Bowel Resection and Other (Open AAA repair 2011)
Social History
Tobacco: Former Smoker
Personal: Single
Living: Alone
Family History
Family History: Reviewed & Not Pertinent
Allergies / Home Medications
Allergy/AdvReac Type Severity Reaction Status Date / Time
adhesive tape (Adhesive Tape) Allergy Intermediate Rash Verified 11/18/24 13:21
oxycodone HCl (From Percocet) Allergy Mild Nausea Verified 11/18/24 13:21
oxycodone terephthalate Allergy Mild Nausea Verified 11/18/24 13:21
(From Percodan)
propoxyphene HCl (From Allergy Mild Nausea Verified 11/18/24 13:21
Darvon)
acetaminophen (From Percocet) Allergy patient Verified 11/18/24 13:21
denies
this
allergy
she takes
tylenol-no
proble
aspirin (From Percodan) Allergy patient Verified 11/18/24 13:21
denies
allergy
she takes
baby
aspirin
no problem
codeine Allergy Rash Verified 11/18/24 13:21
hydromorphone Allergy Rash Verified 11/18/24 13:23
Iodinated Contrast Media Allergy Hives Verified 11/18/24 13:23
naproxen Allergy Rash Verified 11/18/24 13:23
propoxyphene napsylate (From Allergy Rash Verified 11/18/24 13:21
Darvocet-N 100)
rosuvastatin Allergy Rash Verified 11/18/24 13:23
simvastatin Allergy Nausea / Verified 11/18/24 13:23
Vomiting
�Medication �Instructions �Recorded �Confirmed �Type
No Meds [No Current Medications] 12/29/24 12/29/24 History
Review of Systems
-
Unable to obtain full review of systems at this time due to: Dementia (?) and Other
History Source: Patient
All other systems: Negative unless noted
Constitutional: Reports Weight Loss and Fatigue
Abdomen/GI: Reports Abdominal Pain, Nausea and Vomiting
Physical Exam
Vital Signs
Temp Pulse Resp BP Pulse Ox
96.7 F L 75 34 150/53 100
12/30/24 08:03 12/30/24 07:45 12/30/24 07:45 12/30/24 07:00 12/30/24 08:23
Lab Results
12/30/24 02:04
Troponin I 0.176 ng/ml H* D 12/30/24 02:04
Physical Exam
General: Other (frail and cachectic)
HEENT: Normocephalic and Atraumatic
Respiratory: Other (STEPHENS)
Cardiac: JVD
GI: Soft and Tender
Musculoskeletal: No Clubbing and No Edema
Skin: Warm
Neuro: Awake and Alert
Psych: Calm
Assessment / Plan
-
Abdominal pain
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 I do not believe there is an endovascular or open revascularization option for her. I explained this to Sherri and recommend comfort
care/hospice. Attempted to reach her friend Tatyana at the number in the chart but there was no answer. Left VM.
Data Reviewed
-
CT Scan: Discussed with Patient
[2024-12-30] MEDS: TOPROL XL PO (09:34)
[2024-12-30] MEDS: HEPARIN 3100 UNITS IV (09:54)
[2024-12-30] MEDS: PROTONIX IV 40 MG IV (10:35)
[2024-12-30] MEDS: NSS (PRESERVATIVE FREE) 10 ML IV (10:35)
--- NOTE | 2024-12-30 11:07 | PTCARENOTE ---
Pt remains oriented, confused at times, on bicarb and heparin gtt per order.
Vascular team came by to relay to patient surgery is not an option. Tatyana (POA) called nurses station and spoke to RN about pt updates. Tatyana awaiting calls from MD's to talk about goals of care.
[2024-12-30 13:00] LABS: Troponin I 0.355 ng/ml
--- NOTE | 2024-12-30 13:19 | CON.INTV ---
Consultation
Consultation Request
Date/Time Consultation Requested: 12/30/2024 02:00
Date/Time Consultation Performed: 12/30/2024 08:00
Requesting Provider: Dharmesh Cramer
Performing Provider: Waldo Rivas DO (Resident); Debbie Escamilla MD
Reason for Consultation: Ischemic Colitis
Medical History
-
Chief Complaint: Weakness, Fatigue
History of Present Illness:
sherri Gutierrez is a 84F w/ PMHx extensive ASCVD (s/p coronary, peripheral, and carotid stenting), HTN, COPD, GERD, who presented to the ED yesterday with weakness and fatigue. Patient notes she was experiencing these symptoms with poor
appetite/decreased PO intake for several weeks, and then yesterday started to have shortness of breath and 1 episode of NBNB vomiting. Patient is a poor historian and upon chart review, it appears through discussion with the patient's POA that it is
likely the patient has been noncompliant with medications for months.
ED COURSE
On arrival, HR 126, RR 22, Temp 96.4F
Appeared sleepy but arousable, mildly tachypneic w/ decreased breath sounds diffusely and few rales at bases, ab soft/nontender
AFIB w/ RVR, patient started on Cardizem gtt
WBC 8.4 --> 22.7, Hb 9.1
K 2.9, repleted to 3.8
Mild elevation in LFTs
Initial troponin 0.046 --> 0.176
TSH 7.18 w/ free T$ normal
UA positive for UTI
CXR negative
With lactates rising, concern for ischemic bowel grew, CTA Abd/Pelv/Chest was ordered revealing likely subsegmental RUL pulmonary embolism, varying degrees of vessel stenosis, some possibly occlusive, mild diffuse wall thickening of the bowel, renal
ischemia, multilobed aneurysm.
Past Medical History
Past Medical History: Other (ASCVD (s/p coronary, peripheral, and carotid stenting), HTN, COPD, GERD)
Social History
Tobacco: Smoker (50 pack year)
Alcohol: None
Drug: None
Family History
Family History: Reviewed & Not Pertinent
Allergies / Home Medications
Allergies
Allergy/AdvReac Type Severity Reaction Status Date / Time
adhesive tape (Adhesive Tape) Allergy Intermediate Rash Verified 11/18/24 13:21
oxycodone HCl (From Percocet) Allergy Mild Nausea Verified 11/18/24 13:21
oxycodone terephthalate Allergy Mild Nausea Verified 11/18/24 13:21
(From Percodan)
propoxyphene HCl (From Allergy Mild Nausea Verified 11/18/24 13:21
Darvon)
acetaminophen (From Percocet) Allergy patient Verified 11/18/24 13:21
denies
this
allergy
she takes
tylenol-no
proble
aspirin (From Percodan) Allergy patient Verified 11/18/24 13:21
denies
allergy
she takes
baby
aspirin
no problem
codeine Allergy Rash Verified 11/18/24 13:21
hydromorphone Allergy Rash Verified 11/18/24 13:23
Iodinated Contrast Media Allergy Hives Verified 11/18/24 13:23
naproxen Allergy Rash Verified 11/18/24 13:23
propoxyphene napsylate (From Allergy Rash Verified 11/18/24 13:21
Darvocet-N 100)
rosuvastatin Allergy Rash Verified 11/18/24 13:23
simvastatin Allergy Nausea / Verified 11/18/24 13:23
Vomiting
Home Medications
�Medication �Instructions �Recorded �Confirmed �Last Taken �Type
No Meds [No Current Medications] 12/29/24 12/29/24 Unknown History
Review of Systems
-
History Source: Patient and Physician
Vitals / Labs / Diagnostic Testing
Vital Signs
Temp Pulse Resp BP Pulse Ox
95.3 F L 66 32 123/40 73
12/30/24 12:00 12/30/24 12:45 12/30/24 12:30 12/30/24 12:00 12/30/24 12:30
Lab Data
12/30/24 02:04
Laboratory Results
12/30/24 12/30/24 12/30/24
01:19 02:13 08:11
PT 22.0 H Cancelled
INR 1.86 Cancelled
APTT 33.2 Cancelled 41.7 H
Diagnostic Testing:
Physical Exam
-
HEENT: Normocephalic, Anicteric and Other (dry MM)
Cardiovascular: S1/S2 and Irregular Rhythm
Respiratory: Other (diffusely decreased breath sounds)
GI: Tender (diffusely) and Other (tense)
Neurology: Awake and Alert
Skin: Warm
Assessment
-
Sherri Gutierrez is a 84F w/ PMHx extensive ASCVD, HTN, COPD, atrial fibrillation, CVA, VT who presented last night with weakness/fatigue/poor appetite for several weeks with 1 day of shortness of breath and 1 episode of NBNB vomiting.
84-year-old female with past medical history significant for extensive ASCVD, hypertension, COPD, A-fib, CVA, VT presented to the emergency room last night for weakness/fatigue. Per patient's friend who arrived with her in the ER the patient has
been weak and fatigued with poor appetite for several weeks. Patient has not taken any medications for months. Investigation revealed leukocytosis with anion gap metabolic acidosis, and rising lactates in the setting of a CTA that is indicative of
ischemic colitis.
1. Acute Ischemic Colitis
- Worsening serum lactic acid, up to 22
- CT with evidence of diffuse wall thickening
- Per vascular/IR team, there is no benefit to surgical intervention
- Continue Heparin drip
- IV PPI
- Empiric Zosyn
- Increase IVF fluid rate
- Await GOC discussion
2. Subsegmental RUL PE
- Small, and may contribute to, but not the main factor for tachypnea
- Heparin drip as above
3. Atrial Fibrillation w/ RVR
- Resolved, started on Cardizem initially, but now off
- NSR currently
- Hold Metoprolol in setting of soft BPs
4. Hypokalemia (POA)
- Repleted, continue to monitor BMP
5. Nonischemic Myocardial Injury
- Elevated troponin; EKG without signs of ischemia
- Likely in the setting of extensive CAD and acuity
- Trend troponin until downtrend
Prognosis guarded. Primary team to initiate GOC discussion with the haltent's POA.
Data Reviewed
-
EKG: Tracing personally visualized and interpreted and Report reviewed by me
Radiology: Image personally visualized and interpreted and Report reviewed by me
CT Scan: Image personally visualized and interpreted and Report reviewed by me
Labs: Labs reviewed by me
Critical Care Time (in minutes): 45
--- NOTE | 2024-12-30 13:26 | W.PN.UPDATE ---
Addendum entered and electronically signed by Kassi Batista MD 12/30/24 14:05:
comfort measures to start now
Addendum entered and electronically signed by Kassi Batista MD 12/30/24 13:49:
Hospice service available 12/31 to sign patient onto inpatient hospice services
for now continue current plan of care
Original Note:
Update Note
Progress Note Update
d/w BRENT Joe earlier today
agreeable to hospice eval; hospice consulted pending decision and ability to admit to [facility] Today
tx to tele status
continue current treatment for now pending above
--- NOTE | 2024-12-30 13:31 | CM ---
Addendum entered by Alexia Marin 12/30/24 13:55:
Will be admitted to [facility] on Thursday12/31/24.
Received call from [facility]. Patient is active with [facility] office. They are aware of [facility] status.
Original Note:
IA deferred. Patient for inpatient hospice. IMM deferred.
--- NOTE | 2024-12-30 13:40 | HOSPNOTE ---
Spoke with BRENT Joe and she is in agreement for inpatient hospice. The patient will be admitted tomorrow 12/31. Admissions was called and hospice chart will be ready.
[2024-12-30 14:10] LABS: Hematocrit 27.1 % (37.0-47.0); Hemoglobin 7.6 g/dL (12.0-16.0)
[2024-12-30] MEDS: ZOSYN IV (14:22)
[2024-12-30] MEDS: SODIUM BICARBONATE IV (14:24)
[2024-12-30] MEDS: MORPHINE SULFATE 4 MG IV (14:34)
[2024-12-30] MEDS: MORPHINE 100 IV (14:42)
--- NOTE | 2024-12-30 14:55 | PTCARENOTE ---
RN was checking in on patient at 1400 for routine rounds. Pt's feet appeared more cyanotic, pt was mumbling incoherently (was able to converse with me earlier), pt was fidgety and restless in bed, pt became acutely hypotensive, began agonal
respiration pattern. RN took poc glucose which did not register as number was too low. Obtained stat serum glucose per protocol. Messaged vascular, cylinder valve repairer, and hospitalist MD teams about acute change in mental status and appearance.
boatswains mate came to bedside to assess. Order for prn morphine and morphine gtt was obtained. Pt's POA was able to drive over to be with patient. Team and poa in agreement to go ahead with comfort care measures. 2 Doses of prn morphine given per order
and morphine gtt initiated per order and pt presentation.
Pt 1447- see flowsheets.
--- NOTE | 2024-12-30 15:01 | W.PN.DEATH ---
Pronouncement of
-
Called to see patient to pronounce.
No spontaneous heart tones or respirations noted.
Patient not responsive to verbal stimuli.
Patient is pronounced .
Time of : 14:47
Date of : 12/30/24
Cause of : hypovolemic shock from ischemic colitis
Family Notified: Yes
[2024-12-30 15:07] LABS: Glucose < 30 mg/dl (70-99)
--- NOTE | 2024-12-30 15:09 | CM ---
Patient on this date, 12/30/24 @ 14:47. Hospice notified.
--- NOTE | 2025-01-02 15:24 | W.DCSUMMARY ---
Discharge Summary
Discharge Data
Date of Admission: 12/29/24
Date of Discharge: 12/30/24
-
Pending Results: No
Hospital Course
84 y/o F presented to ER with abd pain and weakness/fatigue. She was found to have ischemic colitis with severe lactic acidosis. IR and Vascular were consulted and no interventions were able to be performed due to severe nature of diffuse
atherosclerotic disease in mesentry arteries. Patient was made comfort measures and passed peacefully at 247 pm on 12/30/24. All related paperwork was complete and POA was notified at time of passing.
Discharge Plan
-
Patient Disposition:
Date/Time
Date/Time: 12/30/24 14:47
Discharge Date and Time
Discharge Date/Time: 12/30/24 14:47
Print Language: ARMENIAN
[2025-01-03 06:51] LABS: Glucose - Point of Care < 10 mg/dl (70-99)
== END 2024-12-30 14:47 | disposition expired | DRG 393 ==
LOC: ICU 21:44
PROVIDERS: Nurse Practitioner Primary Care; ADMITTING PHYSICIAN Hospitalist; ATTENDING PHYSICIAN Internal Medicine; CONSULT PHYSICIAN Internal Medicine; EMERGENCY PHYSICIAN Emergency Medicine; FAMILY PHYSICIAN Student in an Organized Health Care Education/Training Program; OTHER PHYSICIAN Surgery Vascular Surgery
DX: K55.039 Acute (reversible) ischemia of large intestine, extent unspecified (principal); I26.93 Single subsegmental thrombotic pulmonary embolism without acute cor pulmonale; R57.1 Hypovolemic shock; K92.2 Gastrointestinal hemorrhage, unspecified; E87.20 Acidosis, unspecified; R64 Cachexia; Z68.1 Body mass index [BMI] 19.9 or less, adult; N39.0 Urinary tract infection, site not specified; I5A Non-ischemic myocardial injury (non-traumatic); K55.1 Chronic vascular disorders of intestine; Z51.5 Encounter for palliative care; I25.10 Atherosclerotic heart disease of native coronary artery without angina pectoris; I70.1 Atherosclerosis of renal artery; R53.1 Weakness; I10 Essential (primary) hypertension; K21.9 Gastro-esophageal reflux disease without esophagitis; E87.6 Hypokalemia; I48.0 Paroxysmal atrial fibrillation; I51.3 Intracardiac thrombosis, not elsewhere classified; I70.202 Unspecified atherosclerosis of native arteries of extremities, left leg; I70.0 Atherosclerosis of aorta; F17.210 Nicotine dependence, cigarettes, uncomplicated; R09.02 Hypoxemia; R06.89 Other abnormalities of breathing; E16.2 Hypoglycemia, unspecified; D50.9 Iron deficiency anemia, unspecified; J43.2 Centrilobular emphysema; Z60.2 Problems related to living alone; Z66 Do not resuscitate; Z79.82 Long term (current) use of aspirin; Z86.73 Personal history of transient ischemic attack (TIA), and cerebral infarction without residual deficits; Z11.52 Encounter for screening for COVID-19; Z86.79 Personal history of other diseases of the circulatory system; Z88.5 Allergy status to narcotic agent; Z88.8 Allergy status to other drugs, medicaments and biological substances; Z91.048 Other nonmedicinal substance allergy status; Z91.148 Patient's other noncompliance with medication regimen for other reason
CPT/HCPCS: 71045; 71275; 74174; 80048; 80053; 80061; 81003; 81015; 82728; 82805; 82947; 82962; 83036; 83540; 83550; 83605; 83735; 84439; 84443; 84484; 85014; 85018; 85025; 85027; 85610; 85730; 86850; 86900; 86901; 87040; 87077; 87086; 87186; 87811; 93005; 93306; 96374; 96376; 99285; Q9967